=== PATIENT | male | born 1960 | race Caucasian/White ===

== ENCOUNTER 2018-08-17 06:12 | Emergency (ER) | payer MEDICARE, MEDICAID ==
[~2018-08-17] VITALS: Ht 177.8 cm; Wt 115.0 kg
[~2018-08-17 06:12] MED LIST: ONDA8TAB9 PO; PANT-47 PO
[2018-08-17 07:03] LABS: BASOPHILS % (AUTO) 0.4 % (0-1); EOSINOPHILS # (AUTO) 0.2 X10'3 (0-0.9); EOSINOPHILS % (AUTO) 3.1 % (0-6); HEMATOCRIT 43.6 % (42.0-52.0); HEMOGLOBIN 14.4 g/dl (14.0-17.9); LYMPHOCYTES # (AUTO) 3.1 X10'3 (1.1-4.8); LYMPHOCYTES % (AUTO) 41.9 % (21-51); MEAN CORPUSCULAR HEMOGLOBIN 30.2 PG (27.0-31.0); MEAN CORPUSCULAR HGB CONC 33.1 % (33.0-36.5); MEAN CORPUSCULAR VOLUME 91.3 FL (78-98); MONOCYTES # (AUTO) 0.6 X10'3 (0-0.9); MONOCYTES % (AUTO) 8.3 % (2-12); NEUTROPHILS # (AUTO) 3.5 X10'3 (1.8-7.7); NEUTROPHILS % (AUTO) 46.3 % (42-75); PLATELET COUNT 253 X10'3 (140-440); RED BLOOD COUNT 4.77 X10'6 (4.70-6.10); RED CELL DISTRIBUTION WIDTH 13.4 % (11.5-14.5); WHITE BLOOD COUNT 7.5 X10'3 (4.5-11.0)
[2018-08-17 07:15] LABS: ALANINE AMINOTRANSFERASE 59 U/L (12-78); ALBUMIN 3.6 G/DL (3.4-5.0); ALBUMIN/GLOBULIN RATIO 1.1 (1.1-1.5); ALKALINE PHOSPHATASE 92 IU/L (46-116); ANION GAP 6 (8-16); BILIRUBIN,TOTAL 0.6 MG/DL (0.1-1.0); BLOOD UREA NITROGEN 9 MG/DL (7-18); BUN/CREATININE RATIO 8.3 (5.4-32.0); CALCIUM 8.8 MG/DL (8.5-10.1); CHLORIDE 104 MMOL/L (99-107); CREATININE 1.09 MG/DL (0.60-1.10); GLUCOSE 111 MG/DL (70-104); SODIUM 139 MMOL/L (135-145); TOTAL CARBON DIOXIDE 28.9 MMOL/L (24-32); TOTAL PROTEIN 6.8 G/DL (6.4-8.2); eGFR 69 ML/MIN
[2018-08-17 07:17] LABS: ASPARTATE AMINO TRANSFERASE 38 U/L (10-37); POTASSIUM 4.3 MMOL/L (3.5-5.1); TROPONIN I < 0.04 NG/ML (0.0-0.05)
[2018-08-17 07:19] LABS: PARTIAL THROMBOPLASTIN TIME 24 SECONDS (22-32)
[2018-08-17] MEDS: LORazepam 2 mg/ml vial IV ONE ×2 (10:07→12:06)
[2018-08-17] MEDS ORDERED: ESCI5TAB PO (11:01)
[2018-08-17] MEDS ORDERED: ASPI-920 PO (11:01)
[2018-08-17] MEDS ORDERED: QUET25TA PO (11:01)
[2018-08-17] MEDS ORDERED: LAMO100T2 PO (11:01)
[2018-08-17] MEDS ORDERED: PROP40TA72 PO (11:01)
[2018-08-17] MEDS ORDERED: ATOR20TA PO (11:01)
[2018-08-17] MEDS ORDERED: MULT-38 PO (11:03)
[2018-08-17 15:20] VITALS: BP 126/86
== END 2018-08-17 15:21 | disposition home or self-care (01) ==
LOC: ER 06:12
DX: R51 Headache (principal); H54.7 Unspecified visual loss; R11.0 Nausea; G25.0 Essential tremor; Z86.73 Personal history of transient ischemic attack (TIA), and cerebral infarction without residual deficits; Z87.891 Personal history of nicotine dependence; Z79.82 Long term (current) use of aspirin; Z79.899 Other long term (current) drug therapy
CPT/HCPCS: 36415; 70450; 71045; 80053; 82948; 84484; 85025; 85610; 85730; 93005; 96374; 99285; J2060

== ENCOUNTER 2019-10-23 11:16 | Emergency (ER) | payer MEDICAID, MEDICARE ==
[~2019-10-23] VITALS: Ht 177.8 cm; Wt 113.6 kg
[~2019-10-23 11:16] MED LIST changes: +ASPI-920 PO; +ATOR20TA PO; +ESCI5TAB PO; +LAMO100T2 PO; +MULT-38 PO; -ONDA8TAB9 PO; -PANT-47 PO; +PROP40TA72 PO; +QUET25TA PO
--- NOTE | 2019-10-23 11:45 | NUR ---
Patient states that he tried to get his meds filled on 10/15/19 at [facility] and found out there was a change in his insurance and it was going to be $900 for his meds. Patient states that he was seen at [facility] on 10/21/19, who found a way to get his meds, but he doesn't think he can restart them at the dose he was at because he has been off them for so long. Patient states that they have been trying to get ahold of [facility] to see what he should restart the medications at, but they have not been able to get ahold of them yet. Addendum: 10/23/19 at 1208 by SHERIDANKINSCara Patient states that he is not suicidal and does not have a plan, he just wants help getting his meds restarted since he has been off of them for a while.
[2019-10-23 12:49] LABS: BASOPHILS % (AUTO) 0.5 % (0-1); EOSINOPHILS % (AUTO) 0 % (0-6); HEMATOCRIT 45.3 % (42.0-52.0); HEMOGLOBIN 15.3 g/dl (14.0-17.9); LYMPHOCYTES # (AUTO) 2.4 X10'3 (1.1-4.8); LYMPHOCYTES % (AUTO) 27.4 % (21-51); MEAN CORPUSCULAR HEMOGLOBIN 29.1 PG (27.0-31.0); MEAN CORPUSCULAR HGB CONC 33.8 g/dL (33.0-36.5); MEAN CORPUSCULAR VOLUME 86.1 FL (78-98); MEAN PLATELET VOLUME 7.5 FL (7.4-10.4); MONOCYTES # (AUTO) 0.7 X10'3 (0-0.9); MONOCYTES % (AUTO) 7.6 % (2-12); NEUTROPHILS # (AUTO) 5.6 X10'3 (1.8-7.7); NEUTROPHILS % (AUTO) 64.5 % (42-75); PLATELET COUNT 300 X10'3 (140-440); RED BLOOD COUNT 5.26 X10'6 (4.70-6.10); RED CELL DISTRIBUTION WIDTH 14.4 % (11.5-14.5); WHITE BLOOD COUNT 8.6 X10'3 (4.5-11.0)
[2019-10-23 13:05] LABS: ALANINE AMINOTRANSFERASE 43 U/L (12-78); ALBUMIN 3.9 G/DL (3.4-5.0); ALBUMIN/GLOBULIN RATIO 1.2 (1.1-1.5); ALKALINE PHOSPHATASE 97 IU/L (46-116); ANION GAP 8 (8-16); ASPARTATE AMINO TRANSFERASE 26 U/L (10-37); BILIRUBIN,TOTAL 0.6 MG/DL (0.1-1.0); BLOOD UREA NITROGEN 8 MG/DL (7-18); BUN/CREATININE RATIO 8.2 (5.4-32.0); CALCIUM 8.8 MG/DL (8.5-10.1); CHLORIDE 104 MMOL/L (99-107); CREATININE 0.98 MG/DL (0.60-1.10); GLUCOSE 107 MG/DL (70-104); POTASSIUM 3.6 MMOL/L (3.5-5.1); SODIUM 143 MMOL/L (135-145); TOTAL CARBON DIOXIDE 30.6 MMOL/L (24-32); TOTAL PROTEIN 7.1 G/DL (6.4-8.2); eGFR 78 ML/MIN
[2019-10-23 13:14] LABS: ETHANOL < 0.010 GM/DL (0.0-0.010)
[2019-10-23 14:13] LABS: CLARITY,URINE CLEAR (Clear); COLOR,URINE YELLOW (Yellow); GLUCOSE, URINE NEGATIVE (Neg); KETONES,URINE NEGATIVE (Neg); LEUKOCYTE ESTERASE ,URINE NEGATIVE (Neg); NITRITES, URINE NEGATIVE (Neg); OCCULT BLOOD,URINE NEGATIVE (Neg); PROTEIN,URINE NEGATIVE (Neg); UROBILINOGEN,URINE 0.2 E.U/dL (0.2-1.0)
[2019-10-23 14:14] LABS: UA COLLECTION TYPE CLN CATCH MIDSTREAM
[2019-10-23 14:58] LABS: URINE AMPHETAMINE SCREEN NEGATIVE (Neg); URINE BARBITUATE SCREEN NEGATIVE (Neg); URINE BENZODIAZEPINES SCREEN NEGATIVE (Neg); URINE CANNABINOID SCREEN NEGATIVE (Neg); URINE COCAINE SCREEN NEGATIVE (Neg); URINE METHADONE SCREEN NEGATIVE (Neg); URINE OPIATE SCREEN NEGATIVE (Neg); URINE PHENCYCLIDINE SCREEN NEGATIVE (Neg)
--- NOTE | 2019-10-23 15:00 | NUR ---
CALLED TO [facility], SPOKE WITH [facility] RE POSSIBILITY OF SPEAKING TO SAJAN DAVIES FOR MED RECOMENDATIONS PT HAS BEEN OFF HIS MEDS AND IS ON A 1798.
--- NOTE | 2019-10-23 15:15 | NUR ---
PT RESTING ON RIGHT SIDE RR EQUAL AND UNLABORED
--- NOTE | 2019-10-23 15:17 | NUR ---
PACKET FAXED TO [facility]
--- NOTE | 2019-10-23 16:24 | NUR ---
SPOKE WITH SAJAN DAVIES RE PT MEDS AND REQUESTED MED RECOMENDATIONS PT IS ON A 1798 AND BECAUSE PT HAS BEEN OFF HIS MEDS. HE STATES HE WILL REVIEW THE MEDS AND MAKE A NOTE IN THE CHART WHEN HE HAS A CHANCE
--- NOTE | 2019-10-23 17:17 | NUR ---
PT UP TO BR, STEADY GAIT
--- NOTE | 2019-10-23 17:49 | NUR ---
PT AWAKE SITTING UP IN BED TALKING TO THE TECHS. NO NEEDS AT THIS TIME
[2019-10-23] MEDS ORDERED: CYCL5TAB PO (18:45)
[2019-10-23] MEDS ORDERED: VENL150C2 PO (18:45)
[2019-10-23] MEDS ORDERED: BENZ1TAB7 PO ×2 (18:45)
--- NOTE | 2019-10-23 18:59 | NUR ---
Assumed care of patient, pt. laying in bed at this time, appears calm and cooperative. RR even and unlabored.
--- NOTE | 2019-10-23 20:14 | NUR ---
Spoke to SAJAN Mills reguarding pt's medicaions. He reccommended to stop the Cogentin, and keep the Effexor, Lamictal, and PRN Flexeril. Will endorse to pt.
[2019-10-23] MEDS ORDERED: cyclobenzaprine 10mg tablet PO PRN (20:20)
--- NOTE | 2019-10-23 21:00 | NUR ---
Nursing Note: 1:1 completed at bedside, pt. continues to present as pleasant and cooperative and is laughing and joking with staff. He denies S/I or any plan at this time and reports that he mainly just needs a medication adjustment and to be connected with psychiatry services in the area, endorsed to [facility] Is[facility]. Pt. does admit that he has had suicidal thoughts and "overwhelming depression with crying in the past weeks," however denies any suicide plan. He reports three past suicide attempts. Pt. also reports visual H/A, states, "I see frogs," and paranoid delusions that something is coming to get him. Pt. states, "These thoughts I have are completely unreasonable, but sometimes I just lay in the corner and can't function."
--- NOTE | 2019-10-23 21:12 | NUR ---
Pt. reporting that he would like to leave and F/U with outpatient psychiatry services (howevever he needs to be referred to a psychiatrist). Isreal from [facility] notified, and he will evaluate pt. next, pt reports understanding.
--- NOTE | 2019-10-23 23:00 | NUR ---
Pt. sleeping at this time, laying on his left side. RR even and ulabored.
--- NOTE | 2019-10-24 01:10 | NUR ---
Pt. continues to sleep, makes occassional body adjustments, appears to be resting comfortably.
--- NOTE | 2019-10-24 03:03 | NUR ---
Pt. continues to sleep at this time, rr remain even and unlabored, will continue to monitor.
--- NOTE | 2019-10-24 05:02 | NUR ---
Pt. continues to sleep, laying on his back, no s/s of distress.
[2019-10-24 05:27] VITALS: BP 146/91
--- NOTE | 2019-10-24 06:45 | NUR ---
Received Pt in bed sleeping w/o distress.
[2019-10-24] MEDS ORDERED: lamoTRIgine 25mg tablet PO SCH (08:00)
[2019-10-24] MEDS ORDERED: venlafaxine XR 75mg capsule (Q24H) PO SCH (08:00)
--- NOTE | 2019-10-24 09:00 | NUR ---
Pt awoke and ate breakfast. Pt A&O x4, pleasant and cooperative and denies SI. Pt discussed being off meds due to high copay issue and how he is working with [facility] to get meds under the $4 program temporarily and [facility] is also changing his [employer] provider. Pt discussed moving out here from [place] 2 yrs ago to meet brother he discovered and how that relationship has ended. Pt is contemplating moving back to [place].
[2019-10-24] MEDS ORDERED: LAMO100T2 PO (16:55)
== END 2019-10-24 17:03 | disposition home or self-care (01) ==
LOC: ER 11:16
DX: F31.9 Bipolar disorder, unspecified (principal); R45.851 Suicidal ideations; G20 Parkinson's disease; Z76.0 Encounter for issue of repeat prescription; Z86.73 Personal history of transient ischemic attack (TIA), and cerebral infarction without residual deficits; Z79.82 Long term (current) use of aspirin; Z79.899 Other long term (current) drug therapy
CPT/HCPCS: 36415; 80053; 80305; 80320; 81003; 84443; 85025; 99284